=== PATIENT | male | born 1965 | race Caucasian/White ===

== ENCOUNTER 2025-02-15 06:01 | Observation (INO) ==
--- NOTE | 2025-01-14 09:43 | PAT Medication Instructions ---
Medication Instructions Date of Service January 14, 2025 Home Medications Medication Instructions Recorded peg 3350-electrolytes 236 240 ml PO Q10M #4,000 mL 09/22/24 gram-22.74 gram-6.74 gram-5.86 gram solution (Golytely) gabapentin 300 mg capsule 300 mg PO TID #90 caps 10/19/24 omega 6-dpf-ddq-fish oil 1,200 mg (144 mg-216 mg) capsule (Fish Oil) 1 cap PO DAILY fexofenadine 180 mg tablet 180 mg PO DAILY PRN Allergy Symptoms magnesium glycinate 100 mg (as glycinate) tablet 200 mg PO QAM peg 3350-electrolytes 236 gram-22.74 gram-6.74 gram-5.86 gram solution (Golytely) 240 ml PO Q10M gabapentin 300 mg capsule 300 mg PO TID lisinopril 10 mg tablet 10 mg PO QAM Continue as directed peg 3350-electrolytes 236 gram-22.74 gram-6.74 gram-5.86 gram solution (Golytely) 240 ml PO Q10M STOP taking 2 weeks before surgery (or as soon as possible if surgery is within 2 weeks) omega 0-apq-amn-fish oil 1,200 mg (144 mg-216 mg) capsule (Fish Oil) 1 cap PO DAILY DO NOT take the morning of surgery fexofenadine 180 mg tablet 180 mg PO DAILY PRN Allergy Symptoms magnesium glycinate 100 mg (as glycinate) tablet 200 mg PO QAM lisinopril 10 mg tablet 10 mg PO QAM Take morning of surgery With a small sip of water, OTHERWISE NOTHING TO EAT OR DRINK AFTER MIDNIGHT: gabapentin 300 mg capsule 300 mg PO TID Take evening before surgery fexofenadine 180 mg tablet 180 mg PO DAILY PRN Allergy Symptoms (if needed) gabapentin 300 mg capsule 300 mg PO TID Other Notes If you have any questions please call us at [phone] or [phone] or [phone] or [phone]
--- NOTE | 2025-01-21 08:24 | Anesthesiology Consultation ---
Date of Service January 21, 2025 Assessment & Plan (1) Encounter for pre-operative examination: - awaiting [place] PCP clearance, especially regarding reported snoring and witnessed apneas-workload note sent. - Case discussed in detail with Dr. Bear who advised patient will need PCP clearance especially given snoring and witnessed apneas reported at PAT visit. Patient made aware he will need PCP clearance, he states will follow-up with his PCP. Surgeon's office made aware. - daily alcohol intake: 6-12 beers daily. Chart Review Chart Review: Pending: Refer to Additional Notes / Consult section and Patient seen in Pre Admission Testing Teaching & Discussion Pre-Anesthesia Teaching/Discussion Notes: Instructed NPO after midnight before surgery, except medications with 15 cc of water. Medication instructions provided according to the PAT guidelines. History Surgery Operation Date: 02/15/25 07:15 Proposed Procedures p C4-C5, C5-C6 Artificial Cervical Disc Arthroplasty, Spinal Cord Monitoring - Marcio Garcia MD Height/Weight Height: 5 ft 8 in Weight: 78.6 kg Allergies Allergy/AdvReac Type Severity Reaction Status Date / Time No Known Allergies Allergy Verified 01/21/25 11:27 Medications Home Medications Medication Instructions Recorded Confirmed Last Taken omega 9-sbo-dqv-fish oil 1,200 mg 1 cap PO DAILY 08/19/23 01/13/25 10/06/24 08:00 (144 mg-216 mg) capsule (Fish Oil) fexofenadine 180 mg tablet 180 mg PO DAILY PRN Allergy 09/22/23 01/13/25 10/06/24 08:00 Symptoms magnesium glycinate 100 mg (as 200 mg PO QAM 11/04/23 01/13/25 10/06/24 08:00 glycinate) tablet peg 3350-electrolytes 236 240 ml PO Q10M #4,000 mL 09/22/24 10/07/24 10/07/24 05:00 gram-22.74 gram-6.74 gram-5.86 gram solution (Golytely) gabapentin 300 mg capsule 300 mg PO TID #90 caps 10/19/24 01/13/25 Unknown lisinopril 10 mg tablet 10 mg PO QAM 01/13/25 01/13/25 Unknown Past Medical History Medical History (Updated 01/21/25 @ 13:32 by Mayelin M. Onink, PA-C) Alcohol abuse 6-12 beers daily Arthritis Cervical disc disorder at C5-C6 level with radiculopathy full rom Degenerative disc disease cervical spine History of COVID-19 (2021) 2021- no hosp; resolved History of diverticulitis last flare 2 years ago HLD (hyperlipidemia) Hypertension controlled, stable per pt-states will need to be on low sodium diet post-op and is aware that this is to surgeon's management. Surgeon's office made aware. Prediabetes diet control Hgb A1C 5.2 on 11/22/24 Seasonal allergies Sleep-disordered breathing snoring and witnessed apneas Patient denies h/o stroke, seizures, heart attack, heart failure, blood clots/DVTs or blood transfusions. Exercise / Class Metabolic Activity II 4-5 Yardwork/Stairs/Walk up hill (denies chest discomfort or shortness of breath with one flight of stairs) Past Family History Family History Mother Diabetes Myocardial infarction Other No family history of adverse response to anesthesia Denies family history of Ovarian cancer Prostate cancer Breast cancer Colorectal cancer Past Surgical History Surgical History H/O eye surgery (1964) left eye- as infant for strabismus H/O wrist surgery (1997) left History of tooth extraction Hx of arthroscopic knee surgery (2000) right Hx of colonoscopy with polypectomy Past Anesthesia History No Hx of Anesthesia Complications and No Family Hx of Anesthesia Complications History of PONV No Hx of PONV and No Hx of Motion Sickness Social History Smoking Status: Former smoker Smoking cigarettes per day: 4 per day Do You Dip or Chew Tobacco: No Smoking End Date: 30 years ago Hx Alcohol Use: Yes Alcohol type: beer alcohol intake frequency: 3 or more drinks per day (6-12 beers daily-denies withdrawal/seizures) Alcohol Intake Frequency Comment: "im an alcoholic" 3-4 per day Hx Substance Use: Yes substance use type: marijuana Last Used Substance Other:: advised Review of Systems Patient denies chest pain, shortness of breath, dyspnea on exertion, reflux, fever, chills, cough, wheezing, or palpitations. Physical Exam Vital Signs Vitals BP 101/63 P 70 TEMP 98.5 SP02 97% on RA RESP 18 Physical Patient resting comfortably in chair in no acute distress, alert and oriented, responding appropriately throughout visit Full cervical extension range of motion without pain TMD 3.5 finger breadths Mallampati Score 2 Dentition: intact, denies chipped or loose teeth, caps/crowns, implants or bridges Lungs: normal respiratory effort. Good air movement, clear throughout to auscultation, no adventitious breath sounds Cardiac: regular rate and rhythm, no murmurs noted Carotid arteries: negative bruit bilat Lab Results Anesthesia Preop Results Results Anesthesia Widget: WBC 7.41 K/ul (4.8-10.8) 01/21/25 Hgb 12.7 g/dl (14.0-18.0) L 01/21/25 Hct 37.0 % (42.0-52.0) L 01/21/25 Plt 207 K/uL (130-400) 01/21/25 Na 135 mmol/L (136-145) L 01/21/25 K 3.8 mmol/L (3.5-5.1) 01/21/25 Cl 102 mmol/L (98-107) 01/21/25 CO2 26 mmol/L (21-32) 01/21/25 BUN 12 mg/dl (6-23) 01/21/25 Creat 0.67 mg/dl (0.6-1.4) 01/21/25 Glucose Level 102 mg/dl (70-99(Fasting)) H 01/21/25 PT 10.8 Seconds (9.0-12.0) 01/21/25 PTT 29 Seconds (21-31) 01/21/25 INR 1.0 (0.9-1.1) 01/21/25 Blood Type A Positive 01/21/25 Antibody Screen NEGATIVE 01/21/25 Testing Chest X-Ray Date: 01/21/25 No acute findings. Cervical Spine Date: 07/26/24 1. Disc protrusion at C4-C5 causes focal mild to moderate central canal stenosis. Additionally at this level there is severe left with moderate right foraminal narrowing. 2. Mild central canal stenosis at C5-C6. 3. Multilevel neural foraminal narrowing. 4. Normal signal of the cervical spinal cord.
[2025-02-15] MEDS: LR 60ML/HR IV SCH (06:43)
[2025-02-15] MEDS: GABAPENTIN 600 MG DOSE PO SCH (06:46)
[2025-02-15] MEDS: ACETAMINOPHEN 500 MG TAB PO SCH (06:46)
[2025-02-15] MEDS: LR 15ML/HR IV SCH (06:46)
[2025-02-15] MEDS ORDERED: ROCURONIUM BROMIDE 10 MG/ML 5 ML VIAL IV ONE ×2 (07:02→08:22)
[2025-02-15] MEDS ORDERED: DEXAMETHASONE SOD INJ 4 MG/ML VIAL ONE (07:02)
[2025-02-15] MEDS ORDERED: LIDOCAINE 2% 2 ML VIAL/AMP(20MG/ML) INFIL ONE (07:02)
[2025-02-15] MEDS ORDERED: ONDANSETRON INJ 2 MG/ML 2 ML VIAL ONE (07:02)
[2025-02-15] MEDS ORDERED: SUCCINYLCHOLINE CHLORIDE 20 MG/ML 10 ML VIAL IV ONE (07:02)
[2025-02-15] MEDS ORDERED: MIDAZOLAM HCL 1 MG/ML 2ML VIAL ONE (07:03)
[2025-02-15] MEDS ORDERED: PROPOFOL IV EMULSION 10 MG/ML 20 ML VIAL IV ONE (07:08)
[2025-02-15] MEDS ORDERED: REMIFENTANIL HCL 1 MG VIAL IV ONE (07:13)
[2025-02-15] MEDS ORDERED: HYDROmorphone INJ 1 MG/ML SYRINGE IV PRN ×2 (07:17→11:31)
[2025-02-15] MEDS ORDERED: ATROPINE SULFATE 0.1 MG/ML 10ML SYR IV PRN (07:17)
[2025-02-15] MEDS ORDERED: PROMETHAZINE HCL 6.25 MG in SODIUM CHLORIDE 0.9% 50 ML IV PRN (07:17)
[2025-02-15] MEDS ORDERED: ONDANSETRON INJ 2 MG/ML 2 ML VIAL IV PRN ×2 (07:17→11:31)
--- NOTE | 2025-02-15 07:20 | History & Physical Bridge Note ---
Date of Service February 15, 2025 History & Physical Bridge Note I have examined the patient, reviewed the History & Physical and in the interval since the performance of the History & Physical I have noted the following changes of clinical significance: no changes noted
[2025-02-15] MEDS ORDERED: KETAMINE HCL 10MG/ML SYR ONE (07:25)
[2025-02-15] MEDS ORDERED: DexMEDEtomidine HCL IV 100 MCG/ML VIAL IV ONE (08:22)
[2025-02-15] MEDS ORDERED: ePHEDrine sulfate 50 MG/5 ML SYR ONE (08:24)
[2025-02-15] MEDS ORDERED: SUGAMMADEX SODIUM 200 MG/2 ML VIAL IV ONE (08:27)
[2025-02-15] MEDS ORDERED: HYDROmorphone INJ 2 MG/ML SYR/VIAL ONE (10:07)
[2025-02-15] MEDS: GELATIN SPONGE 12-7MM ONE (11:06)
[2025-02-15] MEDS: FLOSEAL HEMOSTATIC MATRIX 5ML TOP ONE (11:06)
[2025-02-15] MEDS: THROMBIN 5000 UNITS KIT ONE (11:06)
[2025-02-15] MEDS: VANCOMYCIN HCL 1000MG/20ML VIAL ONE (11:07)
[2025-02-15] MEDS: BUPIVACAINE/EPINEPHRINE 0.5% MPF 1:200,000 30 ML VIAL ONE (11:08)
--- NOTE | 2025-02-15 11:17 | Post Operative Brief Note ---
PG Immediate Post Op with CF Date of Surgery February 15, 2025 Pre & Post Diagnosis Operation Date: 02/15/25 07:30 Pre-Op Diagnosis: Cervical Disc Disorder at C5-C6 Level with Radiculopathy, Left C4-5 Herniated Nucleus Pulposus Post-Op Diagnosis: Cervical Disc Disorder at C5-C6 Level with Radiculopathy, Left C4-5 Herniated Nucleus Pulposus I identified the patient and participated in the time-out.: Yes Procedure Operation Date: 02/15/25 07:30 Actual Procedures p C4-C5, C5-C6 Artificial Cervical Disc Arthroplasty, Spinal Cord Monitoring(Not Applicable) - Marcio Garcia MD Surgeon Marcio Garcia MD 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
[2025-02-15] MEDS ORDERED: diphenhydrAMINE Capsule 25 MG CAP PO PRN (11:31)
[2025-02-15] MEDS ORDERED: METOCLOPRAMIDE HCL INJ 5 MG/ML 2 ML VIAL IV PRN (11:31)
[2025-02-15] MEDS ORDERED: RACEPINEPHRINE 2.25% NEBU SOLN 0.5 ML VIAL INH PRN (11:31)
[2025-02-15] MEDS ORDERED: FAMOTIDINE 20 MG TAB PO PRN (11:31)
[2025-02-15] MEDS ORDERED: DO NOT ADMINISTER PNEUMOCOCCAL VACCINE PRN (11:31)
[2025-02-15] MEDS ORDERED: ALUMINUM/MAGNESIUM SUSP 30 ML UDC PO PRN (11:31)
[2025-02-15] MEDS ORDERED: MAGNESIUM HYDROXIDE SUSP 30 ML UDC PO PRN (11:31)
[2025-02-15] MEDS ORDERED: ONDANSETRON 4 MG OD TAB PO PRN (11:31)
[2025-02-15] MEDS ORDERED: dexAMETHasone 8 MG in SYRINGE 0 ML IV PRN (11:31)
[2025-02-15] MEDS ORDERED: DO NOT ADMINISTER FLU VACCINE PRN (11:31)
[2025-02-15] MEDS ORDERED: SOD PHOSPHATE/SOD BIPHOSPHATE ENEMA 132 ML BTL PR PRN (11:31)
[2025-02-15] MEDS ORDERED: LORazepam 0.5 MG TAB PO PRN (11:31)
[2025-02-15] MEDS ORDERED: NALOXONE HCL 0.4 MG/1 ML VIAL/CARP IV PRN (11:31)
[2025-02-15] MEDS ORDERED: PROMETHAZINE 12.5 MG/50.5 ML BAG IV PRN (11:31)
--- NOTE | 2025-02-15 12:44 | Anesthesiology Progress Note ---
Date of Service February 15, 2025 Anesthesia Post Procedure Vital Signs Vital Signs: Temp Pulse Pulse Resp BP Pulse Ox O2 Del Method 02/15/25 12:30 74 15 124/69 100 Room Air 02/15/25 12:20 68 10 L 131/69 93 Room Air 02/15/25 12:10 68 12 125/72 99 Room Air 02/15/25 12:00 67 12 126/68 94 Room Air 02/15/25 11:50 71 14 126/72 99 Room Air 02/15/25 11:40 74 16 132/71 100 Oxymask 02/15/25 11:31 36.4 C L 73 16 133/74 100 Oxymask 02/15/25 06:18 36.8 C 60 18 163/81 H 99 Room Air O2 Flow Rate 02/15/25 12:30 02/15/25 12:20 02/15/25 12:10 02/15/25 12:00 02/15/25 11:50 02/15/25 11:40 3 02/15/25 11:31 6 02/15/25 06:18 Pain Intensity Neck: Pain Intensity: 1 Transfer of Care Handoff Completed per policy Notes Mental Status: alert / awake / arousable Patient Amnestic to Procedure: Yes Nausea / Vomiting: adequately controlled Pain: adequately controlled Airway Patency, RR, SpO2: stable & adequate BP & HR: stable & adequate Hydration State: stable & adequate Anesthetic Complications: no major complications apparent
[2025-02-15 12:47] LABS: Anion Gap 5.0 (3-11); Blood Urea Nitrogen 9.0 mg/dl (6-23); Calcium 9.3 mg/dl (8.6-10.3); Carbon Dioxide 27.0 mmol/L (21-32); Chloride 106.0 mmol/L (98-107); Creatinine Clr Calc Pharmacy 104.1 ml/min; Glucose 119.0 mg/dl (70-99(Fasting)); Potassium 4.1 mmol/L (3.5-5.1); Sodium 138.0 mmol/L (136-145)
[2025-02-15] MEDS ORDERED: ACETAMINOPHEN 1,000 MG/100 ML VIAL IV PRN (14:00)
--- NOTE | 2025-02-15 14:25 | Fluoroscopy Report ---
INTRAOPERATIVE RADIOGRAPHS CLINICAL HISTORY: C4-C5 and C5-C6 spinal fusion. Fluoro time: 109 seconds Ka,r: 19.89 mGy FINDINGS: 12 spot fluoroscopic views of the cervical spine are presented. An endotracheal tube is in place. There is discectomy with disc spacer placement seen in the lower cervical region, likely at C4 -C5 and C5-C6. The hardware appears to be normally aligned. IMPRESSION: Intraoperative images from cervical spine surgery as above. See operative report for deta iled findings. Electronically signed by: Augusto Noguera M.D. 02/15/2025 2:24 PM
[2025-02-15] MEDS ORDERED: FEXOFENADINE HCL 180 MG TAB PO PRN (14:47)
--- NOTE | 2025-02-15 15:34 | Hospitalist Consultation ---
Date of Consultation February 15, 2025 Assessment & Plan (1) Encounter for pre-operative examination: (2) Lumbosacral radiculopathy: (3) Cervical disc disorder at C5-C6 level with radiculopathy: Plan 59 male EtOH arthritis cervical radiculopathy DJD diverticulosis hypertension hyperlipidemia prediabetes diet controlled allergies Who presented for operative invention of cervical radiculopathy and left C4-5 herniated nucleus pulposus. On 02/15, he underwent C4-C5 and C5-C6 artificial cervical disc arthroplasty Anterior approach. Hospital medicine was consulted for medical management. Status post cervical disc arthroplasty anterior approach Postoperative supportive care Multimodal pain control with bowel regimen Neurochecks Continue home gabapentin Activity and diet advance per primary Hypertension Lisinopril Diet controlled hypertension hyperlipidemia Close outpatient follow-up with PCP DVT prophylaxis per primary Full code Disposition per primary History of Present Illness Reason for Consultation: Medical management Attending Physician: Marcio Garcia MD History of Present Illness 59 male EtOH arthritis cervical radiculopathy DJD diverticulosis hypertension hyperlipidemia prediabetes diet controlled allergies Who presented for operative invention of cervical radiculopathy and left C4-5 herniated nucleus pulposus. On 02/15, he underwent C4-C5 and C5-C6 artificial cervical disc arthroplasty Anterior approach. Hospital medicine was consulted for medical management. He was seen at bedside with his present. He is doing well in good spirits tells me he is hungry wondering if he can eat and move around. He states his arm pain is gone. Denies numbness tingling weakness fevers chills chest pain shortness of breath nausea lightheadedness or any other symptoms. Discussed with RN. Allergies Allergy/AdvReac Type Severity Reaction Status Date / Time chlorhexidine Allergy Mild Rash Verified 02/15/25 06:16 Home Medications Medication Instructions Recorded Confirmed Type omega 0-fad-qqi-fish oil 1,200 mg 1 cap PO DAILY 08/19/23 02/15/25 History (144 mg-216 mg) capsule (Fish Oil) fexofenadine 180 mg tablet 180 mg PO DAILY PRN Allergy 09/22/23 02/15/25 History Symptoms magnesium glycinate 100 mg (as 200 mg PO QAM 11/04/23 02/15/25 History glycinate) tablet lisinopril 10 mg tablet 10 mg PO QAM 01/13/25 02/15/25 History gabapentin 300 mg capsule 300 mg PO TID #90 caps 02/14/25 02/15/25 Rx Patient History Medical History Sleep-disordered breathing snoring and witnessed apneas History of diverticulitis last flare 2 years ago Seasonal allergies Cervical disc disorder at C5-C6 level with radiculopathy full rom HLD (hyperlipidemia) Degenerative disc disease cervical spine Arthritis Prediabetes diet control Hgb A1C 5.2 on 11/22/24 Hypertension controlled, stable per pt-states will need to be on low sodium diet post-op and is aware that this is to surgeon's management. Surgeon's office made aware. Alcohol abuse 6-12 beers daily History of COVID-19 (2021) 2021- no hosp; resolved Surgical History Hx of colonoscopy with polypectomy History of tooth extraction H/O eye surgery (1964) left eye- as for strabismus Hx of arthroscopic knee surgery (2000) right H/O wrist surgery (1997) left Family History Mother Diabetes Myocardial infarction Other No family history of adverse response to anesthesia Denies family history of Ovarian cancer Prostate cancer Breast cancer Colorectal cancer Social History Smoking Status: Former smoker Tobacco Type: Cigarettes and Smokeless Tobacco (Dip or Chew) Age Started Using Tobacco: 9; Age Quit Using Tobacco: 26; packs per day: 0; Cigarettes Per Day: 4 per day; Smoking End Date: 30 years ago; Second Hand Exposure: No; Do You Dip or Chew Tobacco: No (2004); Tobacco Cessation Education Requested by Patient: No Hx Alcohol Use: Yes Alcohol type: beer Alcohol Intake Frequency: 4 or More x per/Week Hx Substance Use: Yes Non-Prescribed Medications: Marijuana Last Used Substance Other:: advised Preferred Language: Faroese Communication Ability: Effective Visual Impairment: No Limitations Hearing Ability: Normal Commissioning Engineer Required: No Beliefs That Will Affect Care: None marital status: Current Living Situation: Spouse current occupational status: employed current occupation: SELF EMPLOYED construction How many Children do You have: 1 Other Information That Helps Us Care for You: No Feels Safe at Home: Yes Safety Concerns: Feels Safe At This Time Childhood Exposure to Second-Hand Smoke: Yes Diet: low carbohydrate and low salt caffeine: Yes during the past year weight has: decreased > 10 lbs Dental Care, Regularly: No Physical Activity Frequency: Daily Physical Activity Frequency Comment: construction work Seatbelt Use: always Sunscreen Use: Yes Assistive Devices: Glasses Review of Systems Review of Systems: Negative except as in HPI Physical Exam Constitutional: no acute distress ENMT: Mouth: no dentition abnormality Mallampati Class: II Neck: normal visual inspection Respiratory: normal respiratory effort; no respiratory distress Aus cultation: lungs clear to auscultation bilaterally Cardiovascular: Rate/Rhythm: regular rate and regular rhythm Heart Sounds: no murmur Musculoskeletal: Spine: normal cervical ROM Psychiatric: Orientation: alert and oriented x 3 Results & Data Results & Data Vital Signs (Past 12 Hours) Vital Signs Temp Pulse Pulse Resp BP BP Pulse Ox 02/15/25 15:05 36.5 C 66 16 124/71 98 02/15/25 15:02 67 16 98 02/15/25 14:30 36.6 C 62 16 129/71 97 02/15/25 14:00 64 16 126/72 98 02/15/25 13:30 64 12 123/66 96 02/15/25 13:15 63 14 120/67 94 02/15/25 13:00 65 12 123/67 95 02/15/25 12:45 68 12 130/67 96 02/15/25 12:30 36.5 C 74 15 124/69 100 02/15/25 12:20 68 12 131/69 93 02/15/25 12:10 68 12 125/72 99 02/15/25 12:00 67 12 126/68 94 02/15/25 11:50 71 14 126/72 99 02/15/25 11:40 74 16 132/71 100 02/15/25 11:31 36.4 C L 73 16 133/74 100 02/15/25 06:18 36.8 C 60 18 163/81 H 99 O2 Del Method O2 Flow Rate 02/15/25 15:05 Room Air 02/15/25 15:02 Room Air 02/15/25 14:30 Room Air 02/15/25 14:00 Room Air 02/15/25 13:30 Room Air 02/15/25 13:15 Room Air 02/15/25 13:00 Room Air 02/15/25 12:45 Room Air 02/15/25 12:30 Room Air 02/15/25 12:20 Room Air 02/15/25 12:10 Room Air 02/15/25 12:00 Room Air 02/15/25 11:50 Room Air 02/15/25 11:40 Oxymask 3 02/15/25 11:31 Oxymask 6 02/15/25 06:18 Room Air PG Care Time/CCT Total # of Minutes Spent Total Time Spent with Patient: Total time spent is greater than 50% in coordination of care (as documented) at patient's floor/unit and/or counseling patient: Coding Level of Care Code 15647 IN/OBS CONSULT LVL 3,45M Diagnoses Encounter for pre-operative examination Z01.818 Lumbosacral radiculopathy M54.17 Cervical disc disorder at C5-C6 level with radiculopathy M50.122
[2025-02-15] MEDS: GABAPENTIN 300 MG CAP PO SCH (20:02)
[2025-02-15] MEDS: DOCUSATE SODIUM/SENNA 50/8.6MG TAB PO SCH (20:02)
[2025-02-15] MEDS: ACETAMINOPHEN 500 MG TAB PO PRN (20:02)
[2025-02-16] MEDS: HYDROmorphone INJ 0.5 MG/0.5 ML SYR IV PRN (01:10)
[2025-02-16] MEDS: POLYETHYLENE (MIRALAX) 17 GM PACK PO SCH (05:41)
[2025-02-16 07:41] VITALS: RESP 16
[2025-02-16] MEDS: OMEGA-3 (PURIFIED FISH OIL) 1 GM CAP PO SCH (07:45)
[2025-02-16] MEDS: MAGNESIUM OXIDE 400 MG TAB PO SCH (07:45)
[2025-02-16 10:15] VITALS: BP 136/78; PULSE 62; TEMP 97.9; O2SAT 99
--- NOTE | 2025-02-16 13:19 | Orthopedic Progress Note ---
Date of Service February 16, 2025 Subjective Patient seen and examined, he notes improvement in his left arm symptomatology primarily in the biceps, no significant issues with swallowing. Exam reveals the dressing to have a very minor amount of drainage present, otherwise motor intact. Impression/plan: Postoperative day 1 from C4-5 C5-6 anterior decompression and disc arthroplasty, overall doing well. As patient is doing well we will have him discharge and follow-up in 2 weeks time we discussed care of the operative site, he was in agreement with this plan. Review of Systems All systems reviewed & are unremarkable except as noted in HPI & below. Physical Exam . Results & Data Results & Data Laboratory Results . Diagnostic Findings . PG Care Time/CCT Total # of Minutes Spent Total Time Spent with Patient: Total time spent is greater than 50% in coordination of care (as documented) at patient's floor/unit and/or counseling patient: Coding Level of Care Code 28541 Post Operative Follow-Up
--- NOTE | 2025-02-16 14:18 | Operative Report ---
PG Post Operative Report Pre & Post Diagnosis Operation Date: 02/15/25 07:30 Pre-Op Diagnosis: Cervical Disc Disorder at C5-C6 Level with Radiculopathy, Left C4-5 Herniated Nucleus Pulposus Post-Op Diagnosis: Cervical Disc Disorder at C5-C6 Level with Radiculopathy, Left C4-5 Herniated Nucleus Pulposus I identified the patient and participated in the time-out.: Yes Procedure Operation Date: 02/15/25 07:30 Actual Procedures p C4-C5, C5-C6 Artificial Cervical Disc Arthroplasty(Not Applicable) - Marcio Garcia MD Surgeon Marcio Garcia MD Csr Technician none Estimated Blood Loss 10 Findings Consistent with Post-Op Diagnosis Specimens None Description of Procedure 1. C4-5 anterior cervical decompression, disc arthroplasty, Mobi-C 17 x 17 x 5 mm. (04469) 2. C4-5 anterior cervical decompression, disc arthroplasty, Mobi-C 17 x 19 x 5 mm. (03888) Patient taken operating room and after adequate anesthesia was carefully positioned in the supine position on the OSI flattop table. Positioning was then pursued, fluoroscopy was brought in to sarbjit for the approximate location of the incision site, prep and drape was performed. Transverse incision was made in the left side of the anterior cervical spine and then advanced down without issue onto the anterior aspect of the cervical spine. The levels to be addressed were fluoroscopically marked, retractors were set. I then inserted the distractor pin at C5 and C6 under fluoroscopic control. Operative microscope was brought in, I began the procedure at the C5-6 level with anterior annulotomy followed by thorough discectomy with removal of cartilage from the endplates. Moving posteriorly, spondylosis was then removed using the high- speed bur along with curettes and then Kerrison punches to remove the posterior spondylosis and/or disc protrusion decompressing the canal up to the uncinates bilaterally. Upon completion I then moved through trial spacers, selecting a size artificial disc as noted, this was then tapped into position using fluoroscopic control with excellent positioning. The distractor pin at C6 was then removed, Floseal and bone wax was applied followed by then inserting it at the C4-5 level. Once again the retractors were set, anterior annulotomy was performed along with a thorough discectomy at this level, this involved also posteriorly down to the dura in a similar fashion with removal of the disc protrusion on the left side and decompressing across the interspace. Trial spacers were brought in, I selected size artificial disc as noted and this was then also tapped into position with excellent position on AP and lateral views. Final images were then obtained, the distractor pins were removed with Floseal and bone wax applied, no issues were noted at the operative site vancomycin powder was placed followed by closure using interrupted 3-0 Vicryl sutures, benzoin and Steri-Strips for the skin followed by sterile dressing. The patient tolerated procedure well was taken recovery room in satisfactory condition. I attest to the content of the Intraoperative Record and any orders documented therein. Any exceptions are noted below.
== END 2025-02-16 10:19 | disposition home or self-care (01) ==
LOC: ASU 06:01 → PACUINP 06:01 → 3E 14:30